=== PATIENT | male | born 1950 | race Caucasian/White ===

== ENCOUNTER 2021-01-20 21:44 | Emergency (ER) | payer MEDICARE, MEDICAID ==
[~2021-01-20] VITALS: Ht 167.6 cm; Wt 112.5 kg
[2021-01-20 21:45] VITALS: BP 142/76
== END 2021-01-20 22:49 | disposition home or self-care (01) ==
LOC: ER 21:50
DX: R05 Cough (principal); I10 Essential (primary) hypertension; I25.2 Old myocardial infarction